=== PATIENT | female | born 1990 | race Caucasian/White ===

== ENCOUNTER → 2020-07-19 16:39 | Outpatient (CLI) | payer OTHER, SELFPAY ==
[2020-07-19] MEDS: COVID-19 VACC #1, MRNA(MOD) 100 MCG/0.5 ML VIAL IM (16:52)
== END ==
PROVIDERS: Family Provider Emergency Medicine; PCP Internal Medicine; Visit Provider Internal Medicine
DX: Z23 Encounter for immunization (principal)
CPT/HCPCS: 0011A; 91301

== ENCOUNTER → 2020-08-16 15:56 | Outpatient (CLI) | payer OTHER, SELFPAY ==
[2020-08-16] MEDS: COVID-19 VACC #2, MRNA(MOD) 100 MCG/0.5 ML VIAL IM (16:05)
== END ==
PROVIDERS: Family Provider Emergency Medicine; PCP Internal Medicine; Visit Provider Internal Medicine
DX: Z23 Encounter for immunization (principal)
CPT/HCPCS: 0012A; 91301

== ENCOUNTER → 2022-06-11 12:42 | Outpatient (CLI) | payer OTHER, SELFPAY ==
--- NOTE | 2022-06-11 | DI.MG.S_ITS ---
BILATERAL DIGITAL DIAGNOSTIC MAMMOGRAM 3D/2D: 06/11/2022 CLINICAL: Baseline. Right breast lump. Family history of breast cancer. No prior exams were available for comparison. Both breasts are heterogeneously dense, which may obscure small masses (category c / 51-75% glandular tissue). No significant masses, calcifications, or other findings are seen in either breast. IMPRESSION: INCOMPLETE: NEEDS ADDITIONAL IMAGING EVALUATION There is no abnormality seen in the right breast to correspond with the area of clinical concern and palpable abnormality indicated by triangular marker which likely represent normal fibroglandular tissue, however, an ultrasound is recommended for further evaluation and is scheduled to immediately follow this examination. Based on the Tyrer Cuzick model (a risk assessment model) the patient's lifetime risk is 16.6% and her 10 year risk is 1.0%. According to the ACR, ACS, and NCCN guidelines, an annual breast MRI exam along with mammogram is recommended if the patient's lifetime risk is 20% or greater. This exam was interpreted at Station ID: [id number]. NOTE: For mammograms, a report in lay terms will be sent to the patient. Approximately 15% of breast malignancies will not be visualized mammographically. In the management of a palpable breast mass, a negative mammogram must not discourage biopsy of a clinically suspicious lesion. Electronically Signed By: Jose M Krueger M.D. aty/:06/11/2022 13:20:47 ACR BI-RADS Category 0: Incomplete 3340F
--- NOTE | 2022-06-11 | DI.US.S_ITS ---
ULTRASOUND OF RIGHT BREAST: 06/11/2022 CLINICAL: Palpable right breast lump. Comparison is made to exam dated: 06/11/2022 mammogram - [facility]. Real-time ultrasound of the right breast was performed. Cantor scale images of the real-time examination were reviewed. No significant abnormalities were seen sonographically in the right breast. IMPRESSION: NEGATIVE There is no sonographic evidence of malignancy. There is no abnormality seen in the right breast to correspond with the area of clinical concern and palpable abnormality, however, recommend clinical follow up for persistent or worsening symptoms, or development of any clinically suspicious findings. Recommend initiating routine screening mammograms at age 40. Findings and recommendations were conveyed to the patient during today's evaluation. This exam was interpreted at Station ID: [id number]. Electronically Signed By: Jose M Krueger M.D. aty/:06/11/2022 14:00:53 letter sent: Clinical Evaluation Ultrasound BI-RADS: 1 Negative
== END ==
PROVIDERS: Family Provider Emergency Medicine; PCP Internal Medicine; Referring Provider Internal Medicine; Visit Provider Internal Medicine
DX: N63.10 Unspecified lump in the right breast, unspecified quadrant (principal); Z80.3 Family history of malignant neoplasm of breast; R92.2 Inconclusive mammogram
CPT/HCPCS: 76642; 77066; G0279